=== PATIENT | male | born 1995 | race Caucasian/White ===

== ENCOUNTER 2020-08-24 18:03 | Emergency (ER) | payer BC ==
--- NOTE | 2020-08-24 18:40 | EDM.PDOC ---
ED HPI GENERAL MEDICAL PROBLEM - General Chief Complaint: General Stated Complaint: HYPERTHYROIDISM Time Seen by Provider: 08/24/20 18:32 Source of Information: Reports: Patient, RN Notes Reviewed History Limitations: Reports: No Limitations - History of Present Illness INITIAL COMMENTS - FREE TEXT/NARRATIVE: 25-year-old gentleman presents emergency department today concerned about hypothyroidism, he was recently diagnosed with hypothyroidism within the last year has been started on replacement medications of levothyroxine 175 mcg daily. 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 He states he has had some symptoms of sharp pain in his neck with some swelling around his thyroid gland where he feels it is difficult for him to swallow - Related Data Allergies Allergy/AdvReac Type Severity Reaction Status Date / Time No Known Allergies Allergy Verified 08/24/20 18:34 Home Meds: Home Meds Levothyroxine 175 mcg PO ACBREAKFAST 08/24/20 [History] Past Medical History Endocrine/Metabolic History: Reports: Hypothyroidism - Past Surgical History GI Surgical History: Reports: Appendectomy, Cholecystectomy Social & Family History - Tobacco Use Tobacco Use Status *Q: Never Tobacco User - Recreational Drug Use Recreational Drug Use: No ED ROS GENERAL - Review of Systems Review Of Systems: See Below Constitutional: Reports: No Symptoms HEENT: Reports: Throat Swelling Respiratory: Reports: No Symptoms Cardiovascular: Reports: No Symptoms GI/Abdominal: Reports: No Symptoms ED EXAM, GENERAL - Physical Exam Exam: See Below Exam Limited By: No Limitations General Appearance: Alert, WD/WN, No Apparent Distress Throat/Mouth: Normal Inspection, Normal Lips, Normal Teeth, Normal Gums, Normal Oropharynx, Normal Voice, No Airway Compromise Head: Atraumatic, Normocephalic Neck: Normal Inspection, Supple, Non-Tender, Full Range of Motion. No: Lymphadenopathy (R), Lymphadenopathy (L), Tender Lateral, Tender Midline, Thyromegaly Respiratory/Chest: No Respiratory Distress, Lungs Clear, Normal Breath Sounds, No Accessory Muscle Use, Chest Non-Tender Cardiovascular: Regular Rate, Rhythm, No Murmur Course - Vital Signs Last Recorded V/S: Last Vital Signs Temp 97.7 F 08/24/20 18:35 Pulse 67 08/24/20 18:35 Resp 15 08/24/20 18:35 BP 172/80 H 08/24/20 18:35 Pulse Ox 97 08/24/20 18:35 - Orders/Labs/Meds Labs: Laboratory Tests 08/24/20 08/24/20 08/24/20 Range/Units 18:58 18:58 18:58 WBC 9.3 (4.5-11.0) K/uL RBC 4.77 (4.30-5.90) M/uL Hgb 13.1 (12.0-15.0) g/dL Hct 41.5 (40.0-54.0) % MCV 87 (80-98) fL MCH 28 (27-31) pg MCHC 32 (32-36) % Plt Count 302 (150-400) K/uL Neut % (Auto) 60 (36-66) % Lymph % (Auto) 24 (24-44) % Sully % (Auto) 14 H (2-6) % Eos % (Auto) 2 (2-4) % Baso % (Auto) 0 (0-1) % Sodium 140 (140-148) mmol/L Potassium 3.8 (3.6-5.2) mmol/L Chloride 105 (100-108) mmol/L Carbon Dioxide 29 (21-32) mmol/L Anion Gap 6.0 (5.0-14.0) mmol/L BUN 10 (7-18) mg/dL Creatinine 0.8 (0.8-1.3) mg/dL Est Cr Clr Drug Dosing 144.48 mL/min Estimated GFR (MDRD) > 60 (>60) Glucose 90 (74-106) mg/dL Calcium 8.8 (8.5-10.1) mg/dL TSH, Ultra Sensitive 0.106 L (0.358-3.740) uIU/mL Departure - Departure Time of Disposition: 19:59 Disposition: Home, Self-Care 01 Condition: Good Clinical Impression: Hypothyroidism Qualifiers: Hypothyroidism type: unspecified Qualified Code(s): E03.9 - Hypothyroidism, unspecified - Discharge Information Instructions: Hypothyroidism Referrals: PCP,None [Primary Care Provider] - Forms: ED Department Discharge Additional Instructions: Stop your 175 mcg, start the 150 mcg 1 tablet daily tomorrow and then recheck your TSH in 4 to 6 weeks call return to the emergency department worsening of symptoms Sepsis Event Note (ED) - Evaluation Sepsis Screening Result: No Definite Risk - Focused Exam Vital Signs: Vital Signs Temp Pulse Resp BP Pulse Ox 08/24/20 18:35 97.7 F 67 15 172/80 H 97 - Assessment/Plan Plan: Assessment Acuity = acute Site and laterality = hypothyroid poor control Etiology = overstimulation with levothyroxine Manifestations = none Location of injury = Home Lab values = CBC BMP unremarkable TSH is 0.106 Plan Fasting to stop taking the 175 mcg prescription written for levothyroxine 150 mcg 1 tablet daily and then recheck in 4 to 6 weeks This note was dictated using [employer] Qualified voice recognition software please call with any questions on syntax or grammar.
== END 2020-08-24 20:10 | disposition home or self-care (01) ==
LOC: JP.ED 18:03
DX: E03.9 Hypothyroidism, unspecified (principal); Z79.899 Other long term (current) drug therapy
CPT/HCPCS: 36415; 80048; 84443; 85025; 99283